=== PATIENT | female | born 1960 | race Caucasian/White ===

== ENCOUNTER 2016-09-29 09:41 | Emergency (ER) | payer OTHER ==
--- NOTE | ~2016-09-29 | CT4 ---
[facility] A Service of [facility] RADIOLOGY TEXT RESULTS PATIENT: SABRA MULLEN LOCATION: [facility] : 62 UNIT #: [id number] AGE: [address]: Shaq Holcomb MD SEX: F ORDER DR: [id number] [facility] [address] [place], [place] [address] [id number] MR#: [id number] #: [id number] NAME: SABRA MULLEN : 1960 SEX: F STUDY DATE/TIME: 09/29/2016 1305 UNIT: [facility] ROOM: STUDY DESCRIPTION: CT Abd and Pelv Wo Cont Attending Physician: Shaq Holcomb M.D. Ordering Physician: Shaq Holcomb M.D. Primary Care Physician: Kinga Vargas Aprn MEDICAL IMAGING REPORT This report is preliminary unless electronic signature is present EXAM CT abdomen and pelvis without contrast 09/29/2016 1305 hours CLINICAL HISTORY 56-year-old woman with abdominal pain, hemorrhoids, history of lupus. Abdominal pain began yesterday. COMPARISON CT abdomen 06/28/2013 TECHNIQUE Helical noncontrasted images were obtained from the lung bases through the pubic symphysis. Sagittal and coronal reconstructions were performed. No contrast was administered. Total exam DLP is 677 mGy-cm. This CT exam was performed with one or more of the following radiation dose reduction techniques: automatic exposure control, adjustment of mA and/or kV according to patient size, and iterative reconstruction. FINDINGS The lung bases are clear of acute densities. There is a 2 mm micronodule subpleural in the right middle lobe on the first image of the study, which is unchanged from CT abdomen and pelvis 06/28/2013 and meets lung RAD criteria for benignity. This requires no evaluation. Noncontrasted views through the abdomen demonstrate a normal appearance to the liver, spleen, pancreas, gallbladder, bile ducts and adrenal glands. The kidneys demonstrate no mass, stone or distension. There is no ureterectasis or ureteral calculus seen. The bladder is normal. The stomach is contracted and unopacified. There is no definite wall thickening. The small bowel is nondistended. The terminal ileum is normal. The appendix is normal. There is a dense medication tablet in STS. [facility] A Service of [facility] RADIOLOGY TEXT RESULTS PATIENT: SABRA MULLEN LOCATION: [facility] : 62 UNIT #: [id number] AGE: [address]: Shaq Holcomb MD SEX: F ORDER DR: the right colon. The right colon, transverse colon are normal. The descending colon is normal. There are multiple diverticula in the sigmoid colon where there is suggestion of segmental wall thickening. There is no definite fluid or stranding around the colon. Given the multiple diverticula, I would favor that this represents mild diverticulitis. There is no evidence of fluid or abscess. No evidence of perforation. The uterus and ovaries are normal. There is no pelvic free fluid. Bone window images demonstrate mild degenerative disc disease. There is no acute bone finding. IMPRESSION 1. There is no bowel distension or obstruction. 2. There are numerous colonic diverticula in the sigmoid colon similar to 06/28/2013 CT scan. There does appear to be mild segmental wall thickening in the sigmoid colon most likely representing acute uncomplicated diverticulitis. There is no fluid, stranding, abscess or evidence of perforation. 3. The gallbladder, bile ducts and pancreas are normal. The appendix is normal. Dictated by... Yulisa Rocha M.D. THIS IS AN ELECTRONICALLY VERIFIED REPORT Yulisa Rocha M.D. at 09/29/2016 5:11 PM Charisse TD: 09/29/2016 15:14 JOB #: [id number] MEDICAL IMAGING REPORT Page 1 of 1 COPY
[~2016-09-29 09:41] MED LIST: ALLERGY MED PO; ALPRAZOLAM PO; ASPIRIN81 M1 PO; BENTYL20 MG PO; BUSPAR PO; BUSPIRONE HCL10 MG PO; CLARITIN10 M2 PO; GABAPENTIN600 MG PO; KLONOPIN PO; METOPROLOL TAR25 MG PO; NEURONTIN PO; NEURONTIN800 MG PO; NEXIUM PO; OS-CAL 500+D CA1 TAB PO; PANTOPRAZOLE SO40 MG PO; PHENERGAN PO; PHENERGAN25 M1 PO; PLAQUENIL PO; PLAQUENIL200 MG PO; PRILOSEC PO; PRILOSEC20 M1 PO; PROCARDIA PO; PROCARDIA XL PO; PROCARDIA10 MG PO; SYNTHROID PO; SYNTHROID88 MCG PO; TEGRETOL PO; ULTRAM PO; VICODIN 5/500 T1 TAB PO; ZYRTEC10 M2 PO
[2016-09-29 10:40] LABS: URINE SOURCE CLEAN CATCH
[2016-09-29 10:45] LABS: URINE APPEARANCE CLOUDY; URINE BILIRUBIN NEG (NEG); URINE BLOOD NEG (NEG); URINE COLOR YELLOW; URINE GLUCOSE NEG (NEG); URINE KETONE NEG (NEG); URINE LEUKOCYTE ESTERASE 1+ (NEG); URINE NITRATE NEG (NEG); URINE PROTEIN TRACE (NEG); URINE SPECIFIC GRAVITY 1.017 (1.003-1.035)
[2016-09-29 10:46] LABS: BASOPHIL# 0.1 X10e3 (0-0.3); BASOPHIL% 1.2 % (0-2.5); EOSINOPHIL# 0.2 X10e3 (0-0.7); EOSINOPHIL% 2.6 % (0.0-7.0); HEMATOCRIT 42.3 % (35.0-45.0); HEMOGLOBIN 13.7 gm/dL (12.0-16.0); LYMPHOCYTE% 20.7 % (17.0-45.0); MEAN CELL VOLUME 92.2 FL (83-96); MEAN CORPUSCULAR HGB CONC 32.5 g/dL (30-36); MEAN PLATELET VOLUME 8.9 FL (6.5-11.5); MONOCYTE# 0.9 X10e3 (0-1.0); MONOCYTE% 8.9 % (3.0-12.0); NEUTROPHIL# 6.4 X10e3 (1.5-7.1); NEUTROPHIL% 66.6 % (40-75); PLATELET COUNT 359 X10e3 (140-420); RED BLOOD COUNT 4.58 X10e (3.90-5.30); RED CELL DISTRIBUTION WIDTH 14.8 % (11.0-15.5); WHITE BLOOD COUNT 9.6 X10e3 (4.0-10.5)
[2016-09-29 10:47] LABS: CULTURE INDICATED? YES; URINE BACTERIA AUWI 1+ (NEGATIVE); URINE SQUAMOUS EPITHELIAL CELL FEW /[HPF]
[2016-09-29 10:47] LABS: DIFF IND NO
[2016-09-29 11:11] LABS: URBCS1 AUWI 0-2 /[HPF] (0-2); URINE CRYSTALS CALCIUM OXALATE /[HPF]
[2016-09-29 11:13] LABS: ALBUMIN SERUM 4.3 g/dL (3.5-5.0); ALKALINE PHOSPHATASE 95 U/L (32-92); ALT (SGPT) 17 U/L (10-40); AST (SGOT) 24 U/L (10-42); BILIRUBIN,TOTAL 0.7 mg/dL (0.2-2.0); BLOOD UREA NITROGEN 8 mg/dL (9-23); BUN/CREATININE RATIO 8.88; CALCIUM SERUM 9.1 mg/dL (8.4-10.2); CARBON DIOXIDE 26 mmol/L (22-31); CHLORIDE 101 mmol/L (100-111); CREATININE SERUM 0.9 mg/dL (0.6-1.4); GLUCOSE FASTING 87 mg/dL (70-110); LIPASE 16 U/L (22-51); POTASSIUM 4.3 mmol/L (3.5-5.1); PROTEIN TOTAL SERUM 8.2 g/dL (6.0-8.3); SODIUM 135 mmol/L (135-145)
[2016-09-29 11:16] LABS: BILIRUBIN, DIRECT <0.1 mg/dL (0.0-0.2); BILIRUBIN,INDIRECT 0.6 mg/dL (0.0-0.9)
== END 2016-09-29 14:19 | disposition home or self-care (01) ==
LOC: CED 09:41
DX: K57.92 Diverticulitis of intestine, part unspecified, without perforation or abscess without bleeding (principal); Z88.8 Allergy status to other drugs, medicaments and biological substances; Z88.0 Allergy status to penicillin
CPT/HCPCS: 36415; 74176; 80048; 80076; 81003; 83690; 85025; 87086; 96372; 99284; J0500

== ENCOUNTER 2016-10-10 18:36 | Emergency (ER) | payer OTHER ==
[2016-10-10] MEDS ORDERED: NEURONTIN600 MG PO (19:14)
[2016-10-10] MEDS ORDERED: PROCARDIA PO (19:14)
[2016-10-10] MEDS ORDERED: PLAQUENIL200 MG PO (19:15)
[2016-10-10] MEDS ORDERED: PRILOSEC PO (19:15)
[2016-10-10] MEDS ORDERED: LOPRESSOR PO (19:16)
[2016-10-10] MEDS ORDERED: SYNTHROID PO (19:17)
[2016-10-10] MEDS ORDERED: BUSPAR PO (19:17)
[2016-10-10] MEDS ORDERED: CLARITIN10 M3 PO (19:17)
== END 2016-10-10 20:30 | disposition home or self-care (01) ==
LOC: SED 18:36
DX: M43.6 Torticollis (principal); I25.2 Old myocardial infarction; Z85.850 Personal history of malignant neoplasm of thyroid; Z79.899 Other long term (current) drug therapy; Z88.0 Allergy status to penicillin; Z88.5 Allergy status to narcotic agent; Z88.8 Allergy status to other drugs, medicaments and biological substances
CPT/HCPCS: 99282